=== PATIENT | male | born 1945 | race Caucasian/White ===

== ENCOUNTER 2022-02-14 12:26 | Emergency (ER) | payer MEDICARE, OTHER, SELFPAY ==
[2022-02-14] VITALS (9 sets, daily range): BP systolic 137–148; BP diastolic 69–79; PULSE 63–80; RESP 18–19; TEMP 37.1; O2SAT 96–100; BMI 22.4
--- NOTE | 2022-02-14 13:21 | DI.RAD.S_ITS ---
PROCEDURE: XR ELBOW RT MIN 3V INDICATIONS: pain and swelling TECHNIQUE: 3 views of the elbow were acquired. COMPARISON: None. FINDINGS: Bones: No fractures or dislocations. No suspicious bony lesions. Soft tissues: Probable swelling at the posterior aspect at the distal humerus and lateral epicondyle. No elbow joint effusion. No suspicious soft tissue calcifications. IMPRESSION: No fracture identified. No dislocation. Dictated by: Forrest Marlow M.D. on 02/14/2022 at 13:39 Approved by: Forrest Marlow M.D. on 02/14/2022 at 13:40
--- NOTE | 2022-02-14 13:21 | ED.SKABFB ---
HPI - Skin/Abscess/Foreign Bdy General Chief complaint: Skin/Abscess/Foreign Body Stated complaint: Rt Elbow Pain and Swelling Time Seen by Provider: 02/14/22 12:59 Source: patient Mode of arrival: Family Vehicle Limitations: no limitations History of Present Illness HPI narrative: 76-year-old male who was sent to the emergency department for concern of a septic joint. He states that for the past several days he has had right elbow pain and swelling. No specific trauma. It did start after he received a immunization in his right arm. No fevers. He does have a history of gout but has never had it in his elbow before. He states this felt similar to gout. He started taking his home gout medications without any improvement. He went to the walk-in clinic and was sent to the emergency department for further evaluation. Related Data Previous Rx's Medication Instructions Recorded doxycycline hyclate 100 mg tablet 100 mg PO BID 7 days #14 tabs 02/14/22 Allergies Allergy/AdvReac Type Severity Reaction Status Date / Time Sulfa (Sulfonamide Allergy Severe Rash Verified 02/14/22 12:41 Antibiotics) Review of Systems Constitutional Constitutional: Denies fever(s) Cardiovascular Cardiovascular: Reports system reviewed and no additional complaints, except as documented Musculoskeletal Comments: Right elbow pain and swelling Integumentary/Breasts Comments: Right elbow redness Neurologic Neurologic: Reports system reviewed and no additional complaints, except as documented Hematologic/Lymphatic On Anticoagulants: No Patient History Medical History Gout Social History Smoking Status: Former smoker Smoking Status: Former smoker tobacco type: cigarettes alcohol intake frequency: 0-2 drinks per day Substance Use Type: marijuana Exam Initial Vital Signs Initial Vital Signs: Vital Signs Temperature 98.7 F 02/14/22 12:41 Pulse Rate 75 02/14/22 12:41 Respiratory Rate 19 02/14/22 12:41 Blood Pressure 148/70 H 02/14/22 12:41 Pulse Oximetry 100 02/14/22 12:41 Oxygen Delivery Method 02/14/22 12:41 Const General: cooperative and comfortable HENMT Head: normal to inspection and normocephalic Resp Effort & Inspection: normal respiratory effort Cardio Rate: regular rate Skin Other: Patient does have redness over the olecranon of the right elbow. Neuro General: patient alert, patient awake and moves all extremities Extrem General: normal to inspection and capillary refill normal Other: Minimal tenderness to palpation of the right elbow. His right elbow and right shoulder unremarkable. He does describe tenderness with flexion of the right elbow. Course Orders Ordered: ED Orders 02/14/22 13:21 XR elbow RT min 3V Stat 02/14/22 13:45 Complete Blood Count AUTO DIFF Stat Erythrocyte Sedimentation Rate Stat 02/14/22 15:00 Basic Metabolic Panel Stat C-Reactive Protein Quant Stat Uric Acid Stat Vital Signs Vital signs: Vital Signs - 8 hr 02/14/22 12:41 02/14/22 13:47 02/14/22 13:48 Temperature 98.7 F Pulse Rate 75 72 Respiratory Rate 19 18 Blood Pressure 148/70 H 137/69 Pulse Oximetry 100 96 Oxygen Delivery Method Room Air 02/14/22 13:48 02/14/22 14:00 02/14/22 14:30 Temperature Pulse Rate 71 68 66 Respiratory Rate Blood Pressure Pulse Oximetry 99 98 98 Oxygen Delivery Method 02/14/22 16:15 02/14/22 15:02 02/14/22 15:03 Temperature Pulse Rate 80 70 Respiratory Rate 18 Blood Pressure 146/79 H 146/79 H Pulse Oximetry 98 97 Oxygen Delivery Method 02/14/22 15:03 02/14/22 15:30 Temperature Pulse Rate 65 63 Respiratory Rate Blood Pressure Pulse Oximetry 99 98 Oxygen Delivery Method MDM - Skin/Abscess/Foreign Bdy Lab Data Result diagrams: 02/14/22 13:45 02/14/22 15:00 Labs: Lab Results 02/14/22 02/14/22 02/14/22 Range/Units 13:45 13:45 13:45 WBC 8.4 (4.5-11.0) X10^3/uL RBC 5.07 (4.5-5.9) X10^6/uL Hgb 15.2 (13.5-17.5) g/dL Hct 45.4 (41-53) % MCV 89.5 (80-100) fL MCH 30.0 (26-34) PG MCHC 33.5 (30-36) % RDW 15.0 H (11.6-14.8) % Plt Count 181 (150-400) X10^3/uL Neut % (Auto) 73.2 (50-75) % Lymph % (Auto) 11.9 L (25-40) % [place] % (Auto) 12.6 (3-14) % Eos % (Auto) 1.8 L (2-4) % Baso % (Auto) 0.5 (0-2) % Neut # (Auto) 6100 (2345-7571) /uL Lymph # (Auto) 1000 L (3671-2118) /uL [place] # (Auto) 1100 H (0-900) /uL Eos # (Auto) 200 (0-450) /uL Baso # (Auto) 0 (0-100) /uL ESR 12 (0-15) MM/HR Sodium (137-145) mmol/L Potassium (3.4-5.1) mmol/L Chloride (98-107) mmol/L Carbon Dioxide (22-32) mmol/L BUN (9-20) mg/dL Creatinine (0.66-1.25) mg/dL Estimated GFR (>60) mL/min BUN/Creatinine Ratio (6-22) Glucose (80-110) mg/dL Uric Acid Cancelled Calcium (8.4-10.2) mg/dL C-Reactive Protein Cancelled 02/14/22 Range/Units 15:00 WBC (4.5-11.0) X10^3/uL RBC (4.5-5.9) X10^6/uL Hgb (13.5-17.5) g/dL Hct (41-53) % MCV (80-100) fL MCH (26-34) PG MCHC (30-36) % RDW (11.6-14.8) % Plt Count (150-400) X10^3/uL Neut % (Auto) (50-75) % Lymph % (Auto) (25-40) % [place] % (Auto) (3-14) % Eos % (Auto) (2-4) % Baso % (Auto) (0-2) % Neut # (Auto) (5888-3039) /uL Lymph # (Auto) (9565-4831) /uL [place] # (Auto) (0-900) /uL Eos # (Auto) (0-450) /uL Baso # (Auto) (0-100) /uL ESR (0-15) MM/HR Sodium 143 (137-145) mmol/L Potassium 4.1 (3.4-5.1) mmol/L Chloride 102 (98-107) mmol/L Carbon Dioxide 30 (22-32) mmol/L BUN 18 (9-20) mg/dL Creatinine 0.97 (0.66-1.25) mg/dL Estimated GFR > 60 (>60) mL/min BUN/Creatinine Ratio 18.6 (6-22) Glucose 80 (80-110) mg/dL Uric Acid 6.7 Calcium 8.9 (8.4-10.2) mg/dL C-Reactive Protein 3.4 H Imaging Data Extremity x-ray #1: Radiologist's Impression: [address] [address] XRay Report Signed Patient: Enmanuel Christopher MR#: [id number] : 1945 Acct:[id number] Age/Sex: 76 / M Date of Service: 02/14/22 Loc: ED Accession Number: [id number] ?? Procedure: XR elbow RT min 3V Ordering Provider: Tremayne Quintana D.O. PROCEDURE:? XR ELBOW RT MIN 3V ? INDICATIONS:? pain and swelling ? TECHNIQUE:? 3 views of the elbow were acquired.? ? COMPARISON:? None. ? FINDINGS:? ? Bones:? No fractures or dislocations.? No suspicious bony lesions.? ? Soft tissues:? Probable swelling at the posterior aspect at the distal humerus and lateral epicondyle.? No elbow joint effusion.? No suspicious soft tissue calcifications.? IMPRESSION:? No fracture identified.? No dislocation. ? ? Dictated by: Forrest Marlow M.D. on 02/14/2022 at 13:39 ? ? Approved by: Forrest Marlow M.D. on 02/14/2022 at 13:40?? [facility] Narrative Medical decision making narrative: No leukocytosis. Afebrile. Normal ESR but does have an elevated CRP. He does have redness over the right elbow. His uric acid is negative. He is never had gout in his elbow before but has had gout in his lower extremities. He states that if this was in his lower extremities he would think that it was gout. He has been doing colchicine at home without any improvement. He does have redness over his elbow. We had a very long discussion regarding the possibilities of infection versus inflammation. We also discussed the possibility of infection just being cellulitis versus septic joint. We discussed the limitations of the labs that we have done thus far however I did tell him that it is reassuring that all but 1 of his inflammatory markers are normal. We discussed the risks and benefits of a arthrocentesis. We did discuss that I would be going through a skin that potentially is infected in order to get to the joint and the risks of causing infection however we discussed the benefit of obtaining the fluid for cell analysis to confirm that his joint was not infected. We discussed that if it was not joint infection would be a surgical issue. We also discussed the plan of discharging home with oral antibiotics and returning his symptoms worsened. After this long discussion the patient opted just to do the oral antibiotics and return to the emergency department if his symptoms worsen. His is at bedside for these discussions. He was given strict return precautions. He expressed understanding and agreement. Discharge Plan Departure Patient Disposition: Home Clinical Impression: Cellulitis Instructions: DI for Cellulitis -- Adult Activity Restrictions/Additional Instructions: A prescription for antibiotics was sent to [facility] in [place]. Please pick it up and start taking it as directed. Like we discussed if over the next couple days your symptoms worsen such as more pain, more redness, fevers or any other new symptoms please return to the emergency department for further evaluation. Prescriptions: New doxycycline hyclate 100 mg tablet 100 mg PO BID 7 Days Qty: 14 0RF Referrals: Miscellaneous,Doctor, [Primary Care Provider] - Visit Report Forms: Patient Portal/API
[2022-02-14 13:55] LABS: Add Manual Diff / Slide Review NO; Basophils Absolute Auto 0 /uL (0-100); Basophils Percent Auto 0.5 % (0-2); Eosinophils Absolute Auto 200 /uL (0-450); Eosinophils Percent Auto 1.8 % (2-4); Hematocrit 45.4 % (41-53); Hemoglobin 15.2 g/dL (13.5-17.5); Lymphocytes Absolute Auto 1000 /uL (1100-4500); Lymphocytes Percent Auto 11.9 % (25-40); Mean Corpuscular HGB Conc 33.5 % (30-36); Mean Corpuscular Volume 89.5 fL (80-100); Monocytes Absolute Auto 1100 /uL (0-900); Monocytes Percent Auto 12.6 % (3-14); Neutrophils Absolute Auto 6100 /uL (1500-7000); Neutrophils Percent Auto 73.2 % (50-75); Platelet Count 181 X10^3/uL (150-400); Red Blood Cell Count 5.07 X10^6/uL (4.5-5.9); White Blood Cell Count 8.4 X10^3/uL (4.5-11.0)
[2022-02-14 14:25] LABS: Erythrocyte Sedimentation Rate 12 MM/HR (0-15)
[2022-02-14 15:36] LABS: BUN Creatinine Ratio 18.6 (6-22); Blood Urea Nitrogen 18 mg/dL (9-20); C-Reactive Protein Quant 3.4 mg/dL (<1.0); Calcium 8.9 mg/dL (8.4-10.2); Carbon Dioxide 30 mmol/L (22-32); Chloride 102 mmol/L (98-107); Estimated Glomerular Filt Rate > 60 mL/min (>60); Glucose 80 mg/dL (80-110); HEMOLYSIS < 15 (0-50); Potassium 4.1 mmol/L (3.4-5.1); Sodium 143 mmol/L (137-145)
[2022-02-14 15:55] LABS: Uric Acid 6.7 mg/dL (3.5-8.5)
== END 2022-02-14 16:25 | disposition home or self-care (01) ==
PROVIDERS: Emergency Provider Emergency Medicine
DX: L03.113 Cellulitis of right upper limb (principal)
CPT/HCPCS: 36415; 73080; 80048; 84550; 85025; 85651; 86140; 99283; 99284

== ENCOUNTER → 2023-09-10 11:03 | Outpatient (CLI) | payer MEDICARE, OTHER, SELFPAY ==
--- NOTE | 2023-09-10 11:06 | DI.US.S_ITS ---
PROCEDURE: US RETRO PERITONEAL LIMITED INDICATIONS: Thoracic aortic ectasia TECHNIQUE: Real time scanning was performed of the aorta and iliac arteries, with image documentation. COMPARISON: None. FINDINGS: Aorta: Proximal aortic diameter measures 3.1 cm. Mid-aorta measures 2.0 cm. Distal aortic diameter is 3.6 cm. Iliac arteries: Right common iliac artery measures 1.2 cm. Left common iliac artery measures 1.3 cm. IMPRESSION: 1. Ectasia of the infrarenal abdominal aorta. 3 year sonographic follow-up recommended. Dictated by: Ellie Lantigua M.D. on 09/17/2023 at 14:17 Approved by: Ellie Lantigua M.D. on 09/17/2023 at 14:19
== END ==
LOC: US 11:04
PROVIDERS: Referring Provider Internal Medicine Cardiovascular Disease; Visit Provider Internal Medicine Cardiovascular Disease
DX: I77.810 Thoracic aortic ectasia (principal)
CPT/HCPCS: 76775